=== PATIENT | male | born 1940 | race Asian ===

== ENCOUNTER 2021-02-13 05:00 | Day surgery (SDC) | payer OTHER ==
[2021-02-12 07:50] VITALS: BMI 24.6
[2021-02-13 08:25] VITALS: TEMP 97.1
[2021-02-13 11:53] VITALS: BP 119/53; PULSE 80
== END 2021-02-13 09:17 | disposition home or self-care (01) ==
LOC: JASU-ENDO 05:00
PROVIDERS: ATTEND Internal Medicine Gastroenterology
PROC: 0DJD8ZZ Inspection of Lower Intestinal Tract, Via Natural or Artificial Opening Endoscopic (ICD-10-PCS; principal; 2021-02-13 08:00)
DX: Z12.11 Encounter for screening for malignant neoplasm of colon (principal)